=== PATIENT | female | born 1990 | race Caucasian/White ===

== ENCOUNTER → 2016-04-14 | Outpatient (CLI) | payer BC ==
[~2016-04-14] MED LIST: ATV/1 PO; DOCU-94 PO; FERR28TA PO; IBUP-1050 PO; PRENTAB26 PO
[2016-04-14 18:09] LABS: GTGD 50 Grams
== END | disposition home or self-care (01) ==
LOC: C.LAB1850 15:58
PROVIDERS: ATTEND Obstetrics & Gynecology
DX: O09.299 Supervision of pregnancy with other poor reproductive or obstetric history, unspecified trimester (principal); Z3A.00 Weeks of gestation of pregnancy not specified

== ENCOUNTER → 2016-07-07 | Outpatient (CLI) | payer BC ==
[2016-07-07 15:40] LABS: HEMATOCRIT 32.4 % (37-47)
[2016-07-07 17:23] LABS: GTGD 50 Grams
== END | disposition home or self-care (01) ==
LOC: C.LAB1850 13:39
PROVIDERS: ATTEND Obstetrics & Gynecology
DX: O09.291 Supervision of pregnancy with other poor reproductive or obstetric history, first trimester (principal)

== ENCOUNTER → 2016-07-07 | Outpatient (CLI) | payer BC ==
[2016-07-07 18:31] LABS: URINE APPEARANCE CLEAR (CLEAR); URINE BILIRUBIN NEG (NEG); URINE COLOR YELLOW; URINE EPITHELIAL CELL AUTO 20-30 /lpf (0-5); URINE NITRITE NEG (NEG); URINE SPECIFIC GRAVITY 1.014 (1.000-1.030); UROBILINOGEN NEG (NEG)
[2016-07-07 18:48] LABS: MANUAL MICROSCOPIC REQUIRED? NO; REVIEW REQ? NO
== END | disposition home or self-care (01) ==
LOC: C.LABSPEC 16:14
PROVIDERS: ATTEND Obstetrics & Gynecology
DX: O09.291 Supervision of pregnancy with other poor reproductive or obstetric history, first trimester (principal)

== ENCOUNTER → 2016-07-27 | Outpatient (CLI) | payer BC ==
[2016-07-27 12:09] LABS: URINE APPEARANCE CLEAR (CLEAR); URINE BILIRUBIN NEG (NEG); URINE COLOR YELLOW; URINE NITRITE NEG (NEG); URINE SPECIFIC GRAVITY 1.005 (1.000-1.030); UROBILINOGEN NEG (NEG)
[2016-07-27 12:11] LABS: MANUAL MICROSCOPIC REQUIRED? NO; REVIEW REQ? NO
== END | disposition home or self-care (01) ==
LOC: C.LAB1850 10:25
PROVIDERS: ATTEND Obstetrics & Gynecology
DX: R39.9 Unspecified symptoms and signs involving the genitourinary system (principal)

== ENCOUNTER → 2016-09-01 | Outpatient (CLI) | payer BC | END | disposition home or self-care (01) | LOC: C.LABSPEC 17:51 | PROVIDERS: ATTEND Obstetrics & Gynecology | DX: Z34.93 Encounter for supervision of normal pregnancy, unspecified, third trimester (principal) ==

== ENCOUNTER 2016-09-26 02:54 | Inpatient (IN) | payer BC ==
[~2016-09-26] VITALS: Ht 170.2 cm; Wt 100.0 kg
[2016-10-06] MEDS ORDERED: PRENTAB26 PO (08:10)
[2016-10-06 08:17] VITALS: Ht 170.2 cm; Wt 100.0 kg
[2016-10-06] MEDS ORDERED: LACTATED RINGER'S 1000ML 1,000 ML IV PRN (08:19)
[2016-10-06] MEDS ORDERED: LACTATED RINGER'S 1000ML 500 ML IV PRN ×2 (08:21→16:23)
[2016-10-06] MEDS: LACTATED RINGER'S 1000ML 1,000 ML IV SCH ×2 (08:42→18:14)
[2016-10-06] MEDS: OXYTOCIN 30 UNITS/500ML NSS IV PRN (08:44)
[2016-10-06 08:48] LABS: MEAN CELL VOLUME 88.5 fL (80-100); MEAN CORPUSCULAR HEMOGLOBIN 29.4 pg (25-34); MEAN CORPUSCULAR HGB CONC 33.2 g/dl (32-36); MEAN PLATELET VOLUME 9.8 fL (7.4-10.4); PLATELET COUNT 223 K/uL (130-400); RED BLOOD COUNT 4.18 M/uL (4.2-5.4); WHITE BLOOD COUNT 9.96 K/uL (4.8-10.8)
--- NOTE | 2016-10-06 10:44 | Medical Student: [facility] ---
Med Student History & Physical Date of Service Oct 06, 2016. Chief Complaint "Induction" History of Present Illness Source: patient, family, partner Alondra is a 25 year old with an TIFFANIE of 09/26/16 by LMP of 12/20/16 confirmed by ultrasound at 41 weeks GA who presents today for her postdate induction. Patient reports movements and "feels more uncomfortable" at the moment. She denies vaginal bleeding and leakage of fluids. Her has been uncomplicated. She has a past history of depression and was taking Lexapro, but was tapered off of it in December 2015 in anticipation of conceiving with . She anticipates restarting the medication . When asked about her mood during her , she says it has been "all over the place." On 10/02/16, she had an episode of bleeding and loss of mucus plug, which she saw after using the restroom. She had a scheduled appointment that day with Dr. Horvath,.who reassured her that the episode was normal. A BPP (11/17) was performed that day and was reassuring. Was also reassured by Dr. Landers at her pre-IOL appointment on 10/05/16. labs - Initial labs Blood type - A+ Antibody screen - negative Chlamydia - negative Gonorrhea - negative Hct/Hgb - 38.9%/13.4% MCV - 88 Plt - 325 Rubella immune Nonreactive VDRL/RPR HbSAg - negative HIV counseling/testing - negative Urine culture/screen - negative Cystic fibrosis - negative (09/11/2011) 1st trimester aneuploidy risk assessment - 03/04/2016 Diabetes screen - 104 (04/14/16) 24-28 week labs Hct/Hgb - 32.4%, 10.9 g/dL Diabetes screen - 115 () 32-36 week labs GBS - negative Reactive nonstress test on 09/29/2016. OB History G1: Spontaneous and subsequent D&C in March 2012 at 13 weeks GA. 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 G2: Spontaneous in November 2012 at 6 weeks GA. 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 LMP was 12/21/15. No history of abnormal Pap smears. Last Pap smear was 01/2015 and was normal. Menstrual cycles are typically 28 days long. Menses last 5-7 days and are described as heavy for the first few days and taper off. Reports hx of OCP use for three years and stopped last summer. Denies hx of any STIs. Past Medical History Alondra has a past history of: 1) Migraines - has not had any during and previously was not on medication for them. 2) Depression/anxiety - was taking Lexapro for about a year and a half and stopped in December 2015 when deciding to conceive with . Mood has been "all over the place" during . 3) Mild asthma - sports-induced. Past Surgical History D&C in March 2012 and wisdom tooth surgery. Family History Paternal grandmother has pmh of miscarriage, T2DM, and COPD. Maternal grandfather has a history of bladder cancer. Otherwise, patient and patient's mother deny a history of CT, HTN, hyperlipidemia, stroke, and cancer in any other family members, including mother, father, and four siblings. Social History Never smoker. Would consume alcohol occasionally at holidays but has had no alcohol during . No history of illicit drug use. 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 Smoking Status: Never Smoker Alcohol Use: socially (none throughout ) Drug Use: none Marital Status: Housing status: lives with family Allergies Coded Allergies: No Known Allergies (Unverified , 10/06/16) Home Medications Multivit/Min/Iron/Fol Ac/Pren ( Vitamin), 1 TAB PO DAILY Review of Systems Constitutional: No fever, No chills, No sweats Eyes: + redness, No worsening of vision, No eye pain Respiratory: No shortness of breath, No dyspnea on exertion, No dyspnea at rest Cardiovascular: No chest pain, No edema Abdomen: + nausea Musculoskeletal: + swelling Genitourinary - Female: + Physical Exam VS - T 98.5 degrees F, BP 130/83, HR 87, RR 18 Alondra is a well-nourished, well-developed patient who was awake and alert during the interview. Heart rate was normal with no gallops or murmurs on auscultation. Lungs were clear to auscultation bilaterally. Abdominal exam revealed a soft, non-tender uterus. Fundus measured 43.5 cm. Examination of lower extremities was negative for pedal edema. Calves were tender to palpation but pt did not complain acutely of any pain. Cervix exam performed on admission per Dr. Landers - 3/50%/- 2/anterior/soft. Monitoring External Monitor: EFM shows moderate variability. Accelerations were 15 x 15. No decelerations. heart rate ranges from 130-135 bpm. Tocodynamometer: Contractions occurring every 1.5 to 3.5 minutes. Patient is beginning to feel uncomfortable. Laboratory Results 10/06/16 08:31 Test 10/06/16 08:31 Red Blood Count 4.18 M/uL (4.2-5.4) Mean Corpuscular Volume 88.5 fL (80-100) Mean Corpuscular Hemoglobin 29.4 pg (25-34) Mean Corpuscular Hemoglobin Concent 33.2 g/dl (32-36) RDW Standard Deviation 44.7 fL (36.4-46.3) RDW Coefficient of Variation 13.8 % (11.5-14.5) Mean Platelet Volume 9.8 fL (7.4-10.4) Assessment and Plan Alondra is a 25 year old at 41 weeks gestation who presents today for postdate with no complications. tracing category I. Expectant management for now. Continue with EFM and toco.
[2016-10-06] MEDS ORDERED: EpHEDrine SULFATE INJ 50 MG/ML AMP ONE (15:09)
[2016-10-06] MEDS ORDERED: FENTANYL CITRATE INJ 50 MCG/1 ML 2 ML VIAL ONE (15:09)
[2016-10-06] MEDS ORDERED: BUPIVACAINE 0.25% 30 ML VIAL ONE (15:09)
[2016-10-06] MEDS ORDERED: FENTANYL 2MCG/ML ROPIV 1.25MG/ML 100ML BAG EPI ONE (15:09)
[2016-10-06] MEDS ORDERED: NALOXONE HCL INJ 1 MG in SODIUM CHLORIDE 0.9% 1000ML 1,000 ML IV PRN (16:23)
[2016-10-06] MEDS ORDERED: EpHEDrine SULFATE INJ 50 MG/ML AMP IV PRN (16:30)
[2016-10-06] MEDS ORDERED: NALOXONE HCL INJ 0.4 MG/1 ML VIAL/CARP IV PRN (16:30)
[2016-10-06] MEDS ORDERED: NALBUPHINE HCL INJ 10 MG/ML AMP IV PRN (16:30)
[2016-10-06] MEDS ORDERED: DiphenhydrAMINE HCL 50 MG/ML VIAL IV PRN (16:30)
[2016-10-06] MEDS: ONDANSETRON INJ 2 MG/ML 2 ML VIAL IV PRN (17:06)
[2016-10-06] MEDS: FENTANYL 2MCG/ML ROPIV 1.25MG/ML 100ML BAG EPI PRN ×2 (22:51→23:45)
[2016-10-07] MEDS: LACTATED RINGER'S 1000ML 1,000 ML IV SCH (04:18)
[2016-10-07] MEDS: ONDANSETRON INJ 2 MG/ML 2 ML VIAL IV PRN (04:18)
[2016-10-07] MEDS: OXYTOCIN 30 UNITS/500ML NSS IV PRN (06:18)
[2016-10-07] MEDS ORDERED: LANOLIN OINT EXT PRN ×2 (06:45)
[2016-10-07] MEDS ORDERED: ACETAMINOPHEN 325 MG TAB PO PRN (06:45)
[2016-10-07] MEDS ORDERED: OXYCODONE/ACETAMINOPHEN 5-325 TAB PO PRN (06:45)
[2016-10-07] MEDS ORDERED: ACETAMINOPHEN/CODEINE 300/30MG TAB PO PRN (06:45)
[2016-10-07] MEDS ORDERED: OXYTOCIN 30 UNITS/500ML NSS IV PRN (06:45)
[2016-10-07] MEDS ORDERED: HYDROCORTISONE ACETATE 25 MG SUPP PR PRN (06:45)
[2016-10-07] MEDS ORDERED: BENZOCAINE 20% AER SPR 82.5 GM CAN EXT PRN (06:45)
[2016-10-07] MEDS ORDERED: SUPERCREAM 0.870 % 15GM JAR EXT PRN (06:45)
[2016-10-07] MEDS ORDERED: DIPHTHERIA/TETANUS/PERTUSSIS 0.5 ML SYR/VIAL IM. ONE (06:45)
--- NOTE | 2016-10-07 07:24 | Anesthesia Procedure Note ---
Anesthesia Epidural Removal Nt Date & Time Oct 07, 2016 at 07:23 Vital Signs Pain Intensity: 0.0 Notes Mental Status: alert / awake / arousable, participated in evaluation Nausea / Vomiting: adequately controlled Pain: adequately controlled Airway Patency, RR, SpO2: stable & adequate BP & HR: stable & adequate Hydration State: stable & adequate Neuraxial Anesthesia: was administered Anesthetic Complications: no major complications apparent, pt satisfied with anesthetic care Epidural: removed without complications, with tip intact
[2016-10-07] MEDS: IBUPROFEN 600 MG TAB PO PRN ×2 (08:09→19:53)
[2016-10-07] MEDS: PRENATAL VITAMIN TAB PO SCH (08:30)
[2016-10-07] MEDS: DOCUSATE SODIUM 100 MG CAP PO SCH ×2 (08:30→19:53)
--- NOTE | 2016-10-07 08:37 | [facility] Operative Report ---
Operative Report Operative Date Oct 07, 2016. Pre-Operative Diagnosis iup at 41 weeks induction of labor Post-Operative Diagnosis same Procedure(s) Performed 1. pitocin augmentation 2. epidural 3. arom 4. 5. right sulcal tear, second degree and right labial lac with repair Surgeon Leesa Bakery Technician Surgeon(s) none Estimated Blood Loss 500cc Findings viable male infant Fluids n/a Specimens placenta Drains none Anesthesia epidural Complication(s) None Disposition L&D Description of Procedure Patient pushed well to deliver a viable male in MARY. Loose nuchal x 1 reduced. Anterior shoulder and rest of the baby delivered without difficulty. Nose and mouth suctioned and cord clamped and cut. Infant placed on maternal abdomen. cord blood obtained for collection. Placenta manually extracted. Uterus swept and cleared of all clot debris. Right labial laceration identified and repaired with 3-0 vicryl. Second degree perineal and right labial lac then repaired with 3-0 and 4-0 vicryl. Hemostasis with dilute pitocin and massage. ebl--500cc. mother and baby doing well at the end of the delivery. I attest to the content of the Intraoperative Record and any orders documented therein. Any exceptions are noted below.
[2016-10-07 09:12] VITALS: BP 151/85; PULSE 118; TEMP 36.6; O2SAT 97
[2016-10-07 12:12] VITALS: BP 112/75; PULSE 103; TEMP 36.7; O2SAT 97
[2016-10-07] MEDS: ACETAMINOPHEN/CODEINE 300/30MG TAB PO PRN ×2 (12:30→17:29)
[2016-10-07 15:36] VITALS: BP 109/72; PULSE 102; TEMP 36.6; O2SAT 98
[2016-10-07 19:55] VITALS: BP 113/79; PULSE 90; TEMP 36.8; O2SAT 99
[2016-10-07] MEDS ORDERED: CALCIUM CARBONATE 500 MG CHEWABLE PO PRN (21:45)
[2016-10-08] VITALS: BP 123/81; PULSE 101; TEMP 36.6; O2SAT 98
[2016-10-08 04:30] VITALS: BP 109/74; PULSE 98; TEMP 36.4; O2SAT 98
[2016-10-08] MEDS ORDERED: RANITIDINE HCL 150 MG TAB PO PRN (08:00)
[2016-10-08 08:14] LABS: HEMATOCRIT 27.5 % (37-47)
[2016-10-08 08:15] VITALS: BP 108/68; PULSE 103; TEMP 36.6; O2SAT 98
[2016-10-08] MEDS: DOCUSATE SODIUM 100 MG CAP PO SCH ×2 (08:59→20:22)
[2016-10-08] MEDS: PRENATAL VITAMIN TAB PO SCH (08:59)
--- NOTE | 2016-10-08 09:03 | Medical Student: [facility] ---
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 Subjective conversation w/ patient Ambulation: ambulating normally Voiding: no voiding problems Passing Gas: Yes Diet Tolerance: Regular Diet Lochia: Small Feeding Type: Bottle Feeding Pain: 1/10 pain Notes: Pt is doing well. She was walking around the unit prior to the interview. Bleeding has improved, pt has not noticed any clots. Reports little pain throughout the night, described as a 1/10. Had no acute complaints or concerns. Review of Systems Constitutional: No fever, No chills, No sweats Respiratory: No shortness of breath, No dyspnea on exertion, No dyspnea at rest Cardiac: No chest pain Breast: No nipple discharge, No breast pain Abdomen: No nausea, No vomiting Female : No dysuria Pt reports generalized itchiness. Objective Vital Signs Date Time Temp Pulse Resp B/P (MAP) Pulse Ox O2 Delivery O2 Flow Rate FiO2 10/08/16 08:15 36.6 103 18 108/68 (81) 98 Room Air 10/08/16 04:30 36.4 98 16 109/74 (86) 98 Room Air 10/08/16 00:00 36.6 101 18 123/81 (95) 98 Room Air 10/08/16 00:00 Room Air 10/07/16 19:55 36.8 90 20 113/79 (90) 99 Room Air 10/07/16 19:55 Room Air 10/07/16 15:39 Room Air 10/07/16 15:36 36.6 102 16 109/72 (84) 98 Room Air 10/07/16 12:12 36.7 103 16 112/75 (87) 97 Room Air 10/07/16 09:12 36.6 118 16 151/85 (107) 97 Room Air 10/07/16 09:12 Room Air Physical Exam General Appearance: WELL-APPEARING, WD/WN, NO APPARENT DISTRESS Respiratory/Chest: lungs clear, normal breath sounds, no respiratory distress Cardiovascular: regular rate, rhythm, no gallop, no murmur Abdomen: non tender, soft Fundus: Firm, Relation to Umbilicus (at umbilicus) Extremities: no calf tenderness, + pedal edema (mild edema) Laboratory Results Last 24 Hours Test 10/08/16 07:53 Hemoglobin 9.2 g/dL Hematocrit 27.5 % Assessment and Plan Post- Day Number: 1 Continue Routine Care: Alondra is a 25 year old female who presented on October 06 for her induction. Hct - 37 --> 27.5 Hb - 12.3 --> 9.2 Continue routine care. Monitor pain, bleeding, and mood. Encourage further ambulation. Continue bottle feeding.
--- NOTE | 2016-10-08 09:14 | Progress Note ---
Subjective Oct 08, 2016. Subjective conversation w/ patient Ambulation: ambulating normally Voiding: no voiding problems Passing Gas: Yes Diet Tolerance: Regular Diet Lochia: Small Feeding Type: Bottle Feeding Comment: The patient was seen and examined at bedside. No acute overnight events. Pt received Ibuprofen at 8pm and Percocet at 6pm. Delivered a baby boy. Patient is resting comfortably in bed. Denies having any pain. Eating and urinating well. Plan of care was described to the patient and all questions were answered. Review of Systems Constitutional: No fever, No chills Respiratory: No cough, No sputum, No shortness of breath Cardiac: No chest pain Abdomen: No pain, No nausea, No vomiting Female : No dysuria Objective Vital Signs Date Time Temp Pulse Resp B/P (MAP) Pulse Ox O2 Delivery O2 Flow Rate FiO2 10/08/16 08:15 36.6 103 18 108/68 (81) 98 Room Air 10/08/16 04:30 36.4 98 16 109/74 (86) 98 Room Air 10/08/16 00:00 36.6 101 18 123/81 (95) 98 Room Air 10/08/16 00:00 Room Air 10/07/16 19:55 36.8 90 20 113/79 (90) 99 Room Air 10/07/16 19:55 Room Air 10/07/16 15:39 Room Air 10/07/16 15:36 36.6 102 16 109/72 (84) 98 Room Air 10/07/16 12:12 36.7 103 16 112/75 (87) 97 Room Air 10/07/16 09:12 36.6 118 16 151/85 (107) 97 Room Air 10/07/16 09:12 Room Air Physical Exam General Appearance: WELL-APPEARING, WD/WN, NO APPARENT DISTRESS Respiratory/Chest: chest non-tender, lungs clear, normal breath sounds, no respiratory distress, no accessory muscle use Cardiovascular: regular rate, rhythm, no edema, no gallop, no JVD, no murmur Abdomen: normal bowel sounds, non tender, soft, no organomegaly, no pulsatile mass Fundus: Firm, Non-Tender, Relation to Umbilicus (at the level of the umbilicus) Extremities: normal range of motion, non-tender, normal inspection, no pedal edema, no calf tenderness Laboratory Results Last 24 Hours Test 10/08/16 07:53 Hemoglobin 9.2 g/dL Hematocrit 27.5 % Assessment and Plan Post- Day#: 1 Continue Routine Care: 25F presents for an induction. Delivered a baby boy. GBS-, A+, Rubella Immune Vital signs reviewed and stable. Pt slightly tachycardic. BP good. Oxygen sat excellent. Continue to monitor. Hemoglobin 12.3-->9.2 Continue bottle feeding. Monitor lochia, monitor mood, control pain with PO medications PRN. Continue routine post care. Resident Involvement: Resident Care Provided Care Provided: [facility]
--- NOTE | 2016-10-08 09:15 | Progress Note ---
Subjective Oct 08, 2016. Subjective conversation w/ patient, physical exam Ambulation: ambulating normally Voiding: no voiding problems Passing Gas: Yes Diet Tolerance: Regular Diet Lochia: Moderate Feeding Type: Breast Feeding Pain: controlled Review of Systems Constitutional: No problem reported Respiratory: No problem reported Cardiac: No problem reported Breast: No problem reported Abdomen: No problem reported Female : No problem reported Objective Vital Signs Date Time Temp Pulse Resp B/P (MAP) Pulse Ox O2 Delivery O2 Flow Rate FiO2 10/08/16 08:15 36.6 103 18 108/68 (81) 98 Room Air 10/08/16 04:30 36.4 98 16 109/74 (86) 98 Room Air 10/08/16 00:00 36.6 101 18 123/81 (95) 98 Room Air 10/08/16 00:00 Room Air 10/07/16 19:55 36.8 90 20 113/79 (90) 99 Room Air 10/07/16 19:55 Room Air 10/07/16 15:39 Room Air 10/07/16 15:36 36.6 102 16 109/72 (84) 98 Room Air 10/07/16 12:12 36.7 103 16 112/75 (87) 97 Room Air Physical Exam General Appearance: WELL-APPEARING, NO APPARENT DISTRESS Respiratory/Chest: no respiratory distress Cardiovascular: regular rate, rhythm Abdomen: non tender, soft Fundus: Firm Extremities: normal inspection Laboratory Results Last 24 Hours Test 10/08/16 07:53 Hemoglobin 9.2 g/dL Hematocrit 27.5 % Assessment and Plan Post- Day#: 1 Continue Routine Care: PPD#1 doing well. Continue routine care.
[2016-10-08] MEDS: IBUPROFEN 600 MG TAB PO PRN (14:57)
[2016-10-08 15:40] VITALS: BP 113/75; PULSE 103; TEMP 36.6; O2SAT 98
[2016-10-08] MEDS: ACETAMINOPHEN/CODEINE 300/30MG TAB PO PRN (20:22)
[2016-10-08 23:30] VITALS: BP 113/73; PULSE 92; TEMP 36.7
[2016-10-09] MEDS: ACETAMINOPHEN/CODEINE 300/30MG TAB PO PRN (06:17)
--- NOTE | 2016-10-09 06:58 | Progress Note ---
Subjective Oct 09, 2016. Subjective conversation w/ patient, physical exam, lab review Ambulation: ambulating normally Voiding: no voiding problems Diet Tolerance: Regular Diet Lochia: Small Objective Vital Signs Date Time Temp Pulse Resp B/P (MAP) Pulse Ox O2 Delivery O2 Flow Rate FiO2 10/08/16 23:30 36.7 92 16 113/73 (86) 10/08/16 23:30 Room Air 10/08/16 15:40 36.6 103 18 113/75 (88) 98 Room Air 10/08/16 15:40 98 Room Air 10/08/16 08:55 Room Air 10/08/16 08:15 36.6 103 18 108/68 (81) 98 Room Air Physical Exam General Appearance: WELL-APPEARING Abdomen: non tender Fundus: Firm Extremities: no calf tenderness Laboratory Results Last 24 Hours Test 10/08/16 07:53 Hemoglobin 9.2 g/dL Hematocrit 27.5 % Assessment and Plan Post- Day#: 2 Continue Routine Care: home
--- NOTE | 2016-10-09 06:59 | Discharge Instructions ---
Discharge Instructions Date of Service Oct 09, 2016. Admission Reason for Admission: Induction Discharge Discharge Diagnosis / Problem: Discharge Goals Goal(s): Routine recovery after delivery Activity Recommendations Activity Limitations: per Instructions/Follow-up section . Instructions / Follow-Up Instructions / Follow-Up ACTIVITY RECOMMENDATIONS: * Gradual return to full activity over the next 2-3 weeks. * No lifting - nothing heavier than baby over the next 2-3 weeks. * Do not engage in vigorous exercise, sexual activity or sports until cleared by your physician. * Do not drive or operate any motorized equipment until cleared by your physician. * You may shower/bathe daily. MEDICATIONS: For discomfort or pain, you may use Acetaminophen (Tylenol), Ibuprofen (Advil), or Naproxen (Aleve) following the package directions. For constipation you may use Colace following the package directions. BREAST CARE: If you are not breast feeding: * Wear a supportive bra 24 hours a day for one to two weeks. * Avoid stimulating your breasts and nipples as much as possible during the first few weeks after delivery. * When taking a shower, have the warm water hit your back, not breasts. * When your breasts feel full, apply ice packs. Usually three to four times a day helps ease the discomfort. * Take a mild pain medication (Tylenol / Motrin) when you are uncomfortable. If breast feeding: * Use breast milk to lubricate nipples. Lansinoh cream may be used for sore nipples. You do not need to remove cream prior to breast feeding. If using a different brand of cream, check the label for directions regarding removal of cream prior to nursing. * Wear a supportive bra. * If having problems with breasts or breast feeding, call a [employer] consultant or your health care provider. EPISIOTOMY CARE: After delivery, if you have an episiotomy (stitches), the following steps will ease discomfort and aid healing. * For the first 24 hours after delivery, place ice packs next to your episiotomy to help reduce swelling. * After the first 24 hour-period, sitz baths, either portable or in the tub, are suggested. A shower with a shower arm sprayed over the episiotomy may be comforting. * Mica care should be done after each voiding and bowel movement. Squirt warm water from a plastic bottle over the perineum (region of the body between the anus and urinary opening) and pat dry. * Use Dermoplast to ease discomfort. Shake container. [place] directly over the episiotomy. Place a Tucks on a clean sanitary pad next to your episiotomy. SPECIAL CARE INSTRUCTIONS: When you are discharged from the hospital, it is important for you to follow the instructions listed below: * During the first week at home, you should be able to care for yourself and your baby. In addition, the usual light household activities are encouraged. * Limit your activities to the way you feel. Do not try to clean the house or move furniture. Be sensible. * If you actively engage in sports and have done so up until the time of your delivery, you may resume these activities as soon as you feel able. This may take up to one month or even longer. Use good judgment. * Continue to take your vitamins for at least six weeks after the of your baby. * Your diet need not be limited unless you were on a special diet before your delivery. Breast-feeding mothers need around 2500 calories per day and at least 64-80 ounces of fluid per day (8 to 10 glasses). * You should eat foods from the four major food groups. Crash diets or fad diets are to be avoided. Eating lean meats, fresh fruits and vegetables, low-fat dairy products, high fiber foods and a regular exercise program, will help you get back to your pre- weight without putting your health at risk. * Constipation is sometimes a problem after delivery. Take a mild laxative as needed. If breast feeding, Milk of Magnesia is acceptable to use. You may use a suppository or Fleets enema if no episiotomy. * A daily shower or tub bath is suggested. Be sure to thoroughly and gently dry the perineum. * A bloody vaginal discharge will usually continue until around four weeks post . A small amount of bleeding may continue for as long as six weeks. Vaginal discharge changes from the bright red bleeding after delivery to pink then brownish and finally yellowish-pink before becoming white and disappearing. * Bleeding may increase with activity. Your first period may come in 4-8 weeks. If you are breast feeding, your period may be delayed even longer. * Martell (sex) can begin whenever both you and your partner feel comfortable and do not have any form of genital infection. It is recommended that you wait at least six weeks for internal and external healing to occur. If you have questions, please talk to your health care practitioner. A condom should be used to prevent infection and . * Foreplay, gentle intercourse and lubrication is very important the first several times to prevent pain. A water-based lubricant such as K-Y jelly or Astroglide may be used. * If you have RH negative blood and your baby is RH positive, you will receive RHOGAM by injection prior to discharge. The nurse will give you a card to keep with you that has the date and place that you received RHOGAM after delivery. * During your care, you had a Rubella screen done to check for the presence of rubella antibodies in your blood. If your test was negative, you will receive a Rubella vaccine prior to discharge. This vaccine may cause a fever, soreness at the injection site and flu-like symptoms. If these symptoms persist, notify your health care practitioner. is not advised for one month after a Rubella vaccine. * Verbalizes understanding of car seat law as reviewed with patient nursing. * Car Seat hand-out given and reviewed with patient by nursing. * Shaken baby information reviewed with patient by nursing. Call you doctor if: * Heavy bleeding (saturating several pads an hour) or passing clots the size of your fist. * A fever >101 degrees F (38.3 degrees C) on two occasions four hours apart and /or chills. * Unusual pain in the pelvic or vaginal areas. * "Baby Blues" lasting longer than two weeks. If you have any questions or concerns, call your health care practitioner at . FOLLOW UP VISIT: * Please call the office at to schedule a 6 week examination. It is important you keep this appointment. It is important for you to make arrangements for either yearly or twice yearly check-ups thereafter. Current Hospital Diet Patient's current hospital diet: Regular OB Diet Discharge Diet Recommended Diet: Regular OB Diet Pending Studies Studies pending at discharge: no Medical Emergencies . Who to Call and When: Medical Emergencies: If at any time you feel your situation is an emergency, please call 911 immediately. . Non-Emergent Contact Non-Emergency issues call your: [employer] . . "Provider Documentation" section prepared by Milan Grey. . VTE Core Measure Inpt VTE Proph given/why not?: Treatment not indicated
[2016-10-09 08:40] VITALS: BP 123/79; PULSE 94; TEMP 36.8
[2016-10-09] MEDS: DOCUSATE SODIUM 100 MG CAP PO SCH (08:43)
[2016-10-09] MEDS: PRENATAL VITAMIN TAB PO SCH (08:43)
[2016-10-09] MEDS: IBUPROFEN 600 MG TAB PO PRN (12:26)
== END 2016-10-09 13:30 | disposition home or self-care (01) | DRG 775 ==
LOC: C.LD 10-06 07:31 → C.OBG 10-07 09:15
PROVIDERS: ADMIT Obstetrics & Gynecology; ATTEND Obstetrics & Gynecology
PROC: 3E033VJ Introduction of Other Hormone into Peripheral Vein, Percutaneous Approach (ICD-10-PCS; principal; 2016-10-07)
PROC: 0KQM0ZZ Repair Perineum Muscle, Open Approach (ICD-10-PCS; principal; 2016-10-07)
PROC: 0UQMXZZ Repair Vulva, External Approach (ICD-10-PCS; principal; 2016-10-07)
PROC: 10H07YZ Insertion of Other Device into Products of Conception, Via Natural or Artificial Opening (ICD-10-PCS; principal; 2016-10-07)
PROC: 10E0XZZ Delivery of Products of Conception, External Approach (ICD-10-PCS; principal; 2016-10-07)
DX: O48.0 Post-term pregnancy (principal); O70.1 Second degree perineal laceration during delivery; O69.81X0 Labor and delivery complicated by cord around neck, without compression, not applicable or unspecified; O99.52 Diseases of the respiratory system complicating childbirth; J45.909 Unspecified asthma, uncomplicated; Z3A.41 41 weeks gestation of pregnancy; Z37.0 Single live birth

== ENCOUNTER 2016-10-16 01:08 | Emergency (ER) | payer BC ==
[~2016-10-16] VITALS: Ht 170.2 cm; Wt 92.4 kg
[~2016-10-16 01:08] MED LIST changes: -ATV/1 PO; -DOCU-94 PO; -FERR28TA PO; -IBUP-1050 PO
[2016-10-16 01:13] VITALS: TEMP 36.4; Ht 170.2 cm; Wt 92.4 kg
[2016-10-16 01:21] VITALS: O2SAT 99
[2016-10-16] MEDS ORDERED: ONDANSETRON INJ 2 MG/ML 2 ML VIAL ONE (01:30)
[2016-10-16] MEDS ORDERED: LORAZEPAM 2 MG/ML 1 ML VIAL IV STA (01:38)
--- NOTE | 2016-10-16 01:40 | EMERGENCY ROOM VISIT NOTE ---
History Report prepared by Khalida: Juanito Calles Under the Supervision of: Dr. Cherie Early D.O. First contact with patient: 01:17 Chief Complaint: SHORTNESS OF BREATH Stated Complaint: HARD TO BREATHE,PANIC ATTACK History of Present Illness The patient is a 25 year old female who presents to the Emergency Room with complaints of shortness of breath that occurred recently. She states that she was asleep for about 30 minutes when she awoke very suddenly. She felt very short of breath, her chest was tight, and she felt over-heated, nauseated, and a heaviness in her head. She then began having panic attack. She has a past medical history of anxiety. 8 days ago, she had a vaginal delivery of her first child. Prior to this , she was taking Escitalopram for her anxiety. She is going to start taking it again. She states she is not depressed, but she is emotional. In regards to her physical symptoms, they are still present, but not as bad. She states that she frequently wakes up at night secondary to pain that occurred because of her childbirth. She is not having any issues passing stool. She states she lost a moderate amount of blood in the delivery, so she is taking iron supplements. She is still experiencing bleeding that she describes as a menstrual period. Source of History: patient Onset: recently Position: other (Respiratory system) Symptom Intensity: moderate Quality: other (Shortness of breath) Timing: constant Associated Symptoms: + headache (Heaviness), + diaphoresis, + chest pain ( Tightness), + nausea, No melena, No hematochezia, No diarrhea Review of Systems See HPI for pertinent positives & negatives. A total of 10 systems reviewed and were otherwise negative. Past Medical & Surgical Medical Problems: (1) with 41 completed weeks gestation Family History Patient reports no known family medical history. Social History Smoking Status: Never Smoker Smokeless Tobacco Use: No Alcohol Use: none Drug Use: none Marital Status: Housing Status: lives with family Current/Historical Medications Scheduled Docusate Sodium (Colace), 1 CAP PO BID Ferrous Gluconate (Iron), Unknown Dose PO DAILY Lorazepam (Ativan), 1 MG PO Q6 Multivit/Min/Iron/Fol Ac/Pren ( Vitamin), 1 TAB PO DAILY Scheduled PRN Ibuprofen (Advil), 200-600 MG PO Q4H PRN for Pain Allergies Coded Allergies: No Known Allergies (Unverified , 10/16/16) Physical Exam Vital Signs Date Time Temp Pulse Resp B/P (MAP) Pulse Ox O2 Delivery O2 Flow Rate FiO2 10/16/16 03:26 58 16 141/91 96 10/16/16 02:10 62 16 125/81 98 Room Air 10/16/16 01:26 69 10/16/16 01:21 99 Room Air 10/16/16 01:21 99 Room Air 10/16/16 01:13 36.4 68 16 145/89 98 Room Air Physical Exam HEENT: Head - normocephalic and atraumatic Pupils are equal, round, and reactive to light. Extraocular eye muscles are intact, and sclera are anicteric. Conjunctival pallor. Nose - moist nasal mucosa without discharge. Mouth - moist buccal mucosa. Oropharynx is nonerythematous and there is no tonsillar exudate or edema noted. Neck: Supple; no JVD, nuchal rigidity, cervical lymphadenopathy. Heart: Regular rate and rhythm. There is a normal S1 and S2 with no murmurs, clicks, or gallops appreciated. Lungs: Clear to auscultation bilaterally with no wheezes, rales, or rhonchi. Abdomen: Soft, diffuse mild tenderness, nondistended, with good bowel sounds. There are no palpable pulsatile masses or hepatosplenomegaly. There is no guarding, rigidity, or rebound noted. Extremities: No evidence of cyanosis, clubbing, or edema. There are easily palpable peripheral pulses. Skin: Pale, mildly diaphoretic, no rashes. Medical Decision & Procedures Laboratory Results 10/16/16 01:25 Red Blood Count 3.63, Mean Corpuscular Volume 89.5, Mean Corpuscular Hemoglobin 29.2, Mean Corpuscular Hemoglobin Concent 32.6, Mean Platelet Volume 9.2, Neutrophils (%) (Auto) 60.7, Lymphocytes (%) (Auto) 27.3, Monocytes (%) (Auto) 6.7, Eosinophils (%) (Auto) 2.2, Basophils (%) (Auto) 0.4, Neutrophils # (Auto) 5.02, Lymphocytes # (Auto) 2.25, Monocytes # (Auto) 0.55, Eosinophils # (Auto) 0.18, Basophils # (Auto) 0.03 10/16/16 01:25 Test 10/16/16 01:25 White Blood Count 8.25 K/uL (4.8-10.8) Red Blood Count 3.63 M/uL (4.2-5.4) Hemoglobin 10.6 g/dL (12.0-16.0) Hematocrit 32.5 % (37-47) Mean Corpuscular Volume 89.5 fL (80-100) Mean Corpuscular Hemoglobin 29.2 pg (25-34) Mean Corpuscular Hemoglobin Concent 32.6 g/dl (32-36) Platelet Count 407 K/uL (130-400) Mean Platelet Volume 9.2 fL (7.4-10.4) Neutrophils (%) (Auto) 60.7 % Lymphocytes (%) (Auto) 27.3 % Monocytes (%) (Auto) 6.7 % Eosinophils (%) (Auto) 2.2 % Basophils (%) (Auto) 0.4 % Neutrophils # (Auto) 5.02 K/uL (1.4-6.5) Lymphocytes # (Auto) 2.25 K/uL (1.2-3.4) Monocytes # (Auto) 0.55 K/uL (0.11-0.59) Eosinophils # (Auto) 0.18 K/uL (0-0.5) Basophils # (Auto) 0.03 K/uL (0-0.2) RDW Standard Deviation 43.3 fL (36.4-46.3) RDW Coefficient of Variation 13.2 % (11.5-14.5) Immature Granulocyte % (Auto) 2.7 % Immature Granulocyte # (Auto) 0.22 K/uL (0.00-0.02) Anion Gap 10.0 mmol/L (3-11) Est Creatinine Clear Calc Drug Dose 165.8 ml/min Estimated GFR () 145.8 Estimated GFR (Non- 125.8 BUN/Creatinine Ratio 16.8 (10-20) Calcium Level 9.0 mg/dl (8.5-10.1) Laboratory results per my review. Medications Administered Medications (Trade) Dose Ordered Sig/John Route Start Time Stop Time Status Last Admin Dose Admin Ondansetron HCl (Zofran Inj) 4 mg STK-MED ONCE .ROUTE 10/16/16 01:30 10/16/16 01:31 DC 10/16/16 01:34 4 MG Lorazepam (Ativan Inj) 1 mg NOW STAT IV 10/16/16 01:38 10/16/16 01:41 DC 10/16/16 01:44 1 MG Procedure Zofran Inj 4 mg IV Ativan Inj 1 mg IV ECG Indication: SOB/dyspnea Rate (beats per minute): 68 Rhythm: normal sinus Findings: no acute ischemic change, no ectopy ED Course 0117: Past medical records reviewed. The patient was evaluated in room A11B. A complete history and physical exam was performed. An IV lock was initiated and labs were drawn as above. A 12 EKG was obtained as described above. 0130: The patient complained of nausea and I ordered Zofran Inj 4 mg IV 0138: Ordered Ativan Inj 1 mg IV 0315: Upon reevaluation, she is resting. She no longer feels anxious. I discussed findings and results with her. She verbalized agreement of the treatment plan. She was discharged home. Medical Decision The patient is a 25 year old female who presents to the ED with shortness of breath. Differential diagnosis includes anemia, anxiety, sleep deprivation, and hypoglycemia. I attest that I have personally reviewed the patient's current medication list. Blood Pressure Screening: Patient was found to have a slightly elevated blood pressure due to circumstances. I do not believe that the patient requires hypertension monitoring. Laboratory Results: Hemoglobin 10.6 - up from 9.2 last week, MCV is 89.5, no leukocytosis, glucose and renal function are normal. The patient has a history of anxiety. She had been taken off of her anti- anxiety meds because of the . She has delivered the child approximately one week ago and is interested in restarting her medications. She plans to follow with Dr. dumont with regards to this. The patient awoke from sleep tonight having a panic attack. She received IV Ativan with significant improvement in her symptoms. The patient was discharged with a diagnosis of anemia and started on iron. Her hemoglobin has come up slightly. She is currently taking iron pills. She is not breast- feeding. Impression Primary Impression: Anxiety Additional Impression: Anemia Scribe Attestation The scribe's documentation has been prepared under my direction and personally reviewed by me in its entirety. I confirm that the note above accurately reflects all work, treatment, procedures, and medical decision making performed by me. Departure Information Dispostion Home / Self-Care Prescriptions Lorazepam (ATIVAN) 1 Mg Tab 1 MG PO Q6 for Anxiety, #20 TAB Prov: Cherie Early D.O. 10/16/16 Referrals No Doctor, Assigned (PCP) Huber Starks M.D. Forms HOME CARE DOCUMENTATION FORM, IMPORTANT VISIT INFORMATION Patient Instructions Anxiety Body Response, Anxiety Disorder, ED Anemia Type Not Specified, My [facility] Additional Instructions Follow up with your PCP for restarting daily meds Ativan - 1 tab every 4-6 hours for anxiety. This medication will make you sleepy...you will not be able to care for the baby during this time. No driving Problem Qualifiers
[2016-10-16] MEDS ORDERED: DOCU-94 PO (01:53)
[2016-10-16] MEDS ORDERED: IBUP-1050 PO (01:53)
[2016-10-16] MEDS ORDERED: FERR28TA PO (01:53)
[2016-10-16 01:55] LABS: BASO % 0.4 %; BASO ABS # 0.03 K/uL (0-0.2); COMPLETE YES; EOS % 2.2 %; HEMATOCRIT 32.5 % (37-47); IG% 2.7 %; LYMPH % 27.3 %; LYMPH ABS # 2.25 K/uL (1.2-3.4); MEAN CELL VOLUME 89.5 fL (80-100); MEAN CORPUSCULAR HEMOGLOBIN 29.2 pg (25-34); MEAN CORPUSCULAR HGB CONC 32.6 g/dl (32-36); MEAN PLATELET VOLUME 9.2 fL (7.4-10.4); MONO % 6.7 %; NEUT % 60.7 %; PLATELET COUNT 407 K/uL (130-400); RED BLOOD COUNT 3.63 M/uL (4.2-5.4); WHITE BLOOD COUNT 8.25 K/uL (4.8-10.8)
[2016-10-16 02:14] LABS: BUN/CREATININE RATIO 16.8 (10-20); CREATININE 0.6 mg/dl (0.60-1.20); POTASSIUM 4.1 mmol/L (3.5-5.1)
[2016-10-16] MEDS ORDERED: ATV/1 PO (03:12)
[2016-10-16 03:26] VITALS: BP 141/91; PULSE 58; O2SAT 96
== END 2016-10-16 03:26 | disposition home or self-care (01) ==
LOC: C.EDB 01:09 → C.EDA 03:26
DX: F41.9 Anxiety disorder, unspecified (principal); R06.02 Shortness of breath; D64.9 Anemia, unspecified

== ENCOUNTER → 2016-11-19 | Outpatient (CLI) | payer BC ==
[~2016-11-19] MED LIST changes: +DOCU-94 PO; +FERR28TA PO; +IBUP-1050 PO
== END | disposition home or self-care (01) ==
LOC: C.PAPS 10:58
PROVIDERS: ATTEND Obstetrics & Gynecology
DX: Z01.419 Encounter for gynecological examination (general) (routine) without abnormal findings (principal)

== ENCOUNTER → 2016-11-27 | Outpatient (CLI) | payer BC | END | disposition home or self-care (01) | LOC: C.PATHSPEC 17:16 | PROVIDERS: ATTEND Internal Medicine | DX: L92.9 Granulomatous disorder of the skin and subcutaneous tissue, unspecified (principal); N76.89 Other specified inflammation of vagina and vulva ==

== ENCOUNTER → 2017-02-18 | Outpatient (CLI) | payer BC ==
--- NOTE | 2017-02-18 14:54 | MAMMOGRAPHY REPORT ---
ULTRASOUND OF LEFT BREAST: 02/18/2017 CLINICAL HISTORY: The patient is , delivered September 2016, and is not lactating. She reports a tender erythematous lump on the left breast approximately 3 weeks ago. She was antibiotics on and the lump opened and began to drain blood yesterday. 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 COMPARISON: No prior exams were available for comparison. TECHNIQUE: Real-time targeted ultrasound of the left breast was performed. FINDINGS: Real-time, high resolution targeted ultrasound was performed of the area of the tender marita thematous lump pointed out by the patient, in the left breast at 2:00 along the areolar edge. At the site of the palpable lump there is an intradermal oval hypoechoic parallel 9 x 3 x 8 mm mass, with s urrounding skin thickening. Given that the mass is intradermal, it is benign and likely represents a n infected/inflamed Damon gland cyst. No fluid collection or suspicious masses seen within the underlying breast parenchyma. IMPRESSION: ACR BI-RADS CATEGORY 2: BENIGN Intradermal hypoechoic 9 mm mass at the site of the tender erythematous lump along the left areolar e dge at 2:00. Given the intradermal location, it is benign and likely represents an infected/inflamed Damon gland cyst. There is no sonographic evidence of malignancy. Recommend clinical follow-u p. The patient was verbally notified of the results. Mague Manzanares M.D. ah/:02/18/2017 08:19:15 Attending Technologist: Rajinder DIEGO(R)(M), [facility] Gift Packer: Mague Manzanares MD, [facility] letter sent: Normal 1/2 BI-RADS Code: ACR BI-RADS Category 2: Benign
== END | disposition home or self-care (01) ==
LOC: C.MAMM 07:57
PROVIDERS: ATTEND Physician Assistant
DX: N63.20 Unspecified lump in the left breast, unspecified quadrant (principal)

== ENCOUNTER 2017-06-21 19:13 | Emergency (ER) | payer BC ==
[~2017-06-21] VITALS: Ht 167.6 cm; Wt 85.9 kg
[2017-06-21 19:34] VITALS: TEMP 36.9; Ht 167.6 cm; Wt 85.9 kg
--- NOTE | 2017-06-21 20:03 | EMERGENCY ROOM VISIT NOTE ---
History Report prepared by Khalida: Anirudh Echevarria Under the Supervision of: Dr. Yayo Hill M.D. First contact with patient: 19:51 Chief Complaint: SHOULDER PAIN Stated Complaint: PAIN AROUND LFT SHLDR BLADE,SOB/HURTS TO BREATH History of Present Illness The patient is a 26 year old female who presents to the Emergency Room with complaints of constant left shoulder pain starting this morning 0630 this morning. The patient currently rates her discomfort as a 6-7/10 in severity, and she states that the pain is worsened with deep breathing and moving. The patient states that she did not hurt that area recently. The patient notes that she has had a mild cough today. She denies any fever, nasal congestion, urinary symptoms, leg swelling, personal history of blood clots, and family history of blood clots. She notes that a few weeks ago she drove 6 hours in one day, though other than that she has not had any long car rides or plane rides. The patient reports that she gave 8 months ago. The patient also notes that she has a history of anxiety, and she states that this is causing her also to become short of breath. Source of History: patient Onset: 0630 Position: shoulder (left) Symptom Intensity: 6-7/10 Timing: constant Modifying Factors (Worsening): breathing, movement Associated Symptoms: + cough, + SOB, No fevers, No urinary symptoms Review of Systems See HPI for pertinent positives & negatives. A total of 10 systems reviewed and were otherwise negative. Past Medical & Surgical Medical Problems: (1) with 41 completed weeks gestation Family History Patient reports no known family medical history. Social History Smoking Status: Never Smoker Alcohol Use: none Drug Use: none Marital Status: Housing Status: lives with family Current/Historical Medications Scheduled Control Pills ( Control Pills), 1 TAB PO DAILY Multiple Vitamins W/ Minerals (Womens One Daily), 1 TAB PO DAILY Allergies Coded Allergies: No Known Allergies (Unverified , 10/16/16) Physical Exam Vital Signs Date Time Temp Pulse Resp B/P (MAP) Pulse Ox O2 Delivery O2 Flow Rate FiO2 06/21/17 21:08 88 18 118/67 96 06/21/17 20:23 79 06/21/17 19:34 36.9 95 16 156/94 98 Room Air Physical Exam GENERAL: Patient is in no acute distress. HEENT: No acute trauma, normocephalic atraumatic, mucous membranes moist, no nasal congestion, no scleral icterus. NECK: No stridor, no adenopathy, no meningismus, trachea is midline. LUNGS: Clear to auscultation bilaterally, no wheeze, no rhonchi, breath sounds equal. HEART: Without murmurs gallops or rubs, regular rate and rhythm. ABDOMEN: Soft, nontender, bowel sounds positive, no hernias, no peritonitis. EXTREMITIES: No cyanosis or edema, full range of motion of all the joints without pain or difficulty, no signs for acute trauma. NEUROLOGIC: Oriented x 3, no acute motor or sensory deficits, no focal weakness. SKIN: No rash, no jaundice, no diaphoresis. Medical Decision & Procedures ER Provider Diagnostic Interpretation: Radiology results as stated below per my review and radiologist interpretation: CHEST ONE VIEW PORTABLE HISTORY: EVALUATE RESPIRATORY DISTRESS.DYSPNEA COMPARISON: None. FINDINGS: The lungs are clear. Cardiac silhouette is normal in size. No pleural effusions. No pneumothorax. IMPRESSION: No acute process. Electronically signed by: Nguyễn Toribio M.D. 06/21/2017 8:38 PM Dictated Date/Time: 06/21/2017 8:36 PM Laboratory Results 06/21/17 20:15 06/21/17 20:15 Test 06/21/17 20:15 06/21/17 20:22 Red Blood Count 4.97 M/uL (4.2-5.4) Mean Corpuscular Volume 86.7 fL (80-100) Mean Corpuscular Hemoglobin 29.2 pg (25-34) Mean Corpuscular Hemoglobin Concent 33.6 g/dl (32-36) RDW Standard Deviation 41.8 fL (36.4-46.3) RDW Coefficient of Variation 13.2 % (11.5-14.5) Mean Platelet Volume 10.9 fL (7.4-10.4) Prothrombin Time 10.1 SECONDS (9.0-12.0) Prothromb Time International Ratio 1.0 (0.9-1.1) Activated Partial Thromboplast Time 26.0 SECONDS (21.0-31.0) Partial Thromboplastin Ratio 1.0 Anion Gap 10.0 mmol/L (3-11) Est Creatinine Clear Calc Drug Dose 143.5 ml/min Estimated GFR () 141.0 Estimated GFR (Non- 121.7 BUN/Creatinine Ratio 12.6 (10-20) Calcium Level 9.1 mg/dl (8.5-10.1) Bedside D-Dimer 445 ng/mlFEU (0-450) Laboratory results reviewed by me. Medications Administered Medications (Trade) Dose Ordered Sig/John Route Start Time Stop Time Status Last Admin Dose Admin Ibuprofen (Motrin Tab) 600 mg NOW STAT PO 06/21/17 20:57 06/21/17 20:58 DC 06/21/17 21:05 600 MG ECG Per My Interpretation Indication: back/shoulder pain, SOB/dyspnea Rate (beats per minute): 96 Rhythm: sinus with SA Findings: other (No ST elevation. No PVC) ED Course 1950: The patient was evaluated in room A12. A complete history and physical exam was performed. 2054: Reevaluated the patient. Discussed results and discharge instructions: She verbalized understanding and agreement. The patient is ready for discharge. 2056: Motrin 600mg PO Medical Decision Differential diagnoses include: musculoskeletal pain, nerve impingement, pneumothorax, pneumonia, cardiac ischemia, shingles, PE. There is no leukocytosis or concerning anemia. No significant electrolyte abnormality or kidney failure. EKG shows a sinus rhythm with some sinus arrhythmia, no acute ischemia. Chest film does not show pneumonia, pneumothorax or mediastinal widening. D-dimer testing was negative. With the negative d-dimer and my low suspicion for PE, I will stop the workup for this diagnosis. The patient presents with left posterior pleuritic chest pain. There was no rash to suggest shingles. The pain did worsen with movement. Patient was not hypoxic or toxic. The patient's pain is likely musculoskeletal. She was reassured. She was given oral Motrin, she is being discharged home. If worsening, she can return. Medication Reconcilliation Current Medication List: was personally reviewed by me Blood Pressure Screening Patient's blood pressure: Elevated blood pressure Blood pressure disposition: Elevated BP felt to be situational Impression Primary Impression: Pleuritic chest pain Scribe Attestation The scribe's documentation has been prepared under my direction and personally reviewed by me in its entirety. I confirm that the note above accurately reflects all work, treatment, procedures, and medical decision making performed by me. Departure Information Dispostion Home / Self-Care Referrals Huber Starks M.D. (PCP) Forms HOME CARE DOCUMENTATION FORM, IMPORTANT VISIT INFORMATION Patient Instructions My [facility] Additional Instructions heat or ice may help advil 600 mg 3x per day for 5 days rest return if worsening or have fever lab testing and imaging were all ok today as we discussed
--- NOTE | 2017-06-21 20:40 | DIAGNOSTIC IMAGING REPORT ---
CHEST ONE VIEW PORTABLE HISTORY: EVALUATE RESPIRATORY DISTRESS.DYSPNEA COMPARISON: None. FINDINGS: The lungs are clear. Cardiac silhouette is normal in size. No pleural effusions. No pneumothorax. IMPRESSION: No acute process. Electronically signed by: Nguyễn Toribio M.D. 06/21/2017 8:38 PM Dictated Date/Time: 06/21/2017 8:36 PM
[2017-06-21] MEDS ORDERED: MULT-240 PO (20:42)
[2017-06-21] MEDS ORDERED: BCPILLS PO (20:42)
[2017-06-21 20:45] LABS: HEMATOCRIT 43.1 % (37-47); HEMOGLOBIN 14.5 g/dL (12.0-16.0); MEAN CELL VOLUME 86.7 fL (80-100); MEAN CORPUSCULAR HEMOGLOBIN 29.2 pg (25-34); MEAN CORPUSCULAR HGB CONC 33.6 g/dl (32-36); MEAN PLATELET VOLUME 10.9 fL (7.4-10.4); PLATELET COUNT 338 K/uL (130-400); RED CELL DISTRIBUTION WIDTH CV 13.2 % (11.5-14.5); RED CELL DISTRIBUTION WIDTH SD 41.8 fL (36.4-46.3)
[2017-06-21 20:54] LABS: CALCIUM 9.1 mg/dl (8.5-10.1); CREATININE 0.65 mg/dl (0.60-1.20); POTASSIUM 3.5 mmol/L (3.5-5.1)
[2017-06-21] MEDS ORDERED: IBUPROFEN 600 MG TAB PO STA (20:57)
[2017-06-21 21:08] VITALS: BP 118/67; PULSE 88; O2SAT 96
== END 2017-06-21 21:08 | disposition home or self-care (01) ==
LOC: C.EDB 19:14 → C.EDA 21:08
DX: R07.89 Other chest pain (principal); Z79.3 Long term (current) use of hormonal contraceptives